=== PATIENT | female | born 1965 | race Hispanic/Latino ===

== ENCOUNTER 2022-02-26 18:53 | Emergency (ER) | payer BC, OTHER ==
[~2022-02-26] VITALS: Ht 162.6 cm; Wt 63.5 kg
[2022-02-26] MEDS ORDERED: IBUPROFEN200 MG PO (21:23)
[2022-02-26] MEDS ORDERED: ACETAMINOPHEN500 MG PO (21:23)
== END 2022-02-26 21:44 | disposition home or self-care (01) ==
LOC: FSED 19:02
DX: M25.551 Pain in right hip (principal); S70.01XA Contusion of right hip, initial encounter; S30.0XXA Contusion of lower back and pelvis, initial encounter; W17.89XA Other fall from one level to another, initial encounter; Y93.01 Activity, walking, marching and hiking; Y92.832 Beach as the place of occurrence of the external cause; Z20.822 Contact with and (suspected) exposure to COVID-19
CPT/HCPCS: 72192; 99283; U0002